=== PATIENT | male | born 1950 | race Caucasian/White ===

== ENCOUNTER 2021-12-07 09:36 | Emergency (ER) | payer MEDICARE, OTHER ==
[~2021-12-07] VITALS: Ht 188 cm; Wt 104.3 kg
--- NOTE | 2021-12-07 09:50 | PCM.EKG ---
[facility] Test Date: 2021-12-07 Test Time: 09:43:20 Pat Name: WOOD CEDENO Department: Patient ID: [id number] Room: Gender: M Veterinary Technologist: ROSALIE : 1950 Requested By: JUAN TILLMAN Order Number: [id number] Reading MD: Chintan Villasenor Measurements Intervals [place] Rate: 83 P: 27 OR: 157 QRS: 14 QRSD: 100 T: 33 QT: 381 QTc: 448 Interpretive Statements Sinus rhythm No previous ECG available for comparison Electronically Signed On 12-07-2021 23:01:12 PLATFORM MATERIAL HANDLER MANAGER by Chintan Villasenor Please click the below link to view image of tracing.
[2021-12-07 09:52] VITALS: BP 120/63
--- NOTE | 2021-12-07 09:58 | NUR ---
ARRIVAL PATIENT ARRIVED TO ED4 VIA GURNEY BY [facility], C/O SHORTNESS OF BREATH AND CHEST PAIN WITH EXERTION, RECENTLY HAS COVID BUT ISOLATION IS OVER, EMS INITIATED A 18G TO THE RIGHT AC, GAVE A TOTAL OF MORPHINE 8MG,ZOFRAN 4MG IV AND ASPIRIN 162 PO ANTISQUEAK WORKER, BROUGHT TO THE ED FOR EVAL, AIRWAYS CONTROL SPECIALIST APPLIED AND VITAL SIGNS OBTAINED. DOCTOR LAYNE NOTIFIED OF PATIENT'S ARRIVAL.
[2021-12-07 10:01] LABS: BASOPHIL % 0.2 % (0.0-0.2); EOSINOPHIL # 0.2 10^3/uL (0.0-0.2); EOSINOPHIL % 2.1 % (0.0-5.0); LYMPHOCYTES # 1.31 10^3/uL1 (1.0-4.8); LYMPHOCYTES % 15.4 % (24.0-44.0); MEAN CORP HGB 25.9 pg (26-34); MONOCYTES # 1.2 10^3/uL (0.3-0.8); MONOCYTES % 14.2 % (5.0-12.0); NEUTROPHIL # 5.8 10^3/uL (1.8-7.7); NEUTROPHILS % 67.6 % (41.0-85.0); PLATELET COUNT 466 10^3/uL (150-400)
[2021-12-07] MEDS ORDERED: TAMS-14 PO (10:13)
[2021-12-07] MEDS ORDERED: ALLO100T PO (10:13)
[2021-12-07] MEDS ORDERED: METF500T17 PO (10:13)
--- NOTE | 2021-12-07 10:13 | DIREP ---
PROCEDURE:CHEST 1 VIEW COMPARISON:None. INDICATIONS:Chest pain FINDINGS: LUNGS/PLEURA:Bilateral peripheral infiltrates, left greater than right. No effusion identified. No pneumothorax VASCULATURE:Normal. Unremarkable pulmonary vasculature. CARDIAC:Normal. No cardiac silhouette abnormality or cardiomegaly. MEDIASTINUM:Normal. No visible mass or adenopathy. BONES:Neurostimulator device. Reverse arthroplasty right shoulder. Degenerative changes left. Degenerative changes thoracic spine OTHER:Negative. CONCLUSION:Bilateral peripheral infiltrates, question clinical concern for COVID-19 pneumonia. Differential includes other atypical infections, as well as other processes. No effusion or pneumothorax identified. Dictated by: Mannie Post MD on 12/07/2021 at 10:10 AM
[2021-12-07 10:25] LABS: CARBON DIOXIDE 23.8 mmol/L (20.0-32)
--- NOTE | 2021-12-07 10:28 | ER.PDOC ---
General Chief Complaint: General Complaint Stated Complaint: SOB/CP Time seen by MD: 10:24 Source: patient Exam Limitations: no limitations History of Present Illness Initial Comments Chest pain and shortness of breath since last night. Pain was moderate and by the time EMS was called and on arrival, they gave patient a nitro glycerin tablet, aspirin and 8mg of morphine. Pain is presently easing up. No nausea or vomiting. Severity/Quality: moderate Radiation: no radiation Nitro Today/Relief: 0.4 mg x 1, Provided By EMS Aspirin Today: 81 mg x 4, Provided By EMS Associated Symptoms: shortness of breath Allergies: Coded Allergies: Sulfa (Sulfonamide Antibiotics) (Verified Allergy, Unknown, 12/07/21) Home Meds Reported Medications Metformin Hcl (METFORMIN HCL) 500 Mg Tablet, 1 TAB PO BID, #180 TAB 3 Refills 12/07/21 Tamsulosin Hcl (FLOMAX) 0.4 Mg Cap.er.24h, 1 CAP PO DAILY, #30 CAP 11 Refills 12/07/21 Allopurinol (ALLOPURINOL) 100 Mg Tablet, 1 TAB PO DAILY, #90 TAB 3 Refills 12/07/21 Past Medical History Medical History: diabetes, other Surgical History: back, hip, knee, neck, shoulder Family History Significant Family History: no pertinent family hx Social History Smoking: non-smoker Alcohol Use: none Drug Use: none Constitutional: no symptoms reported EENTM: no symptoms reported Respiratory: see HPI Cardiovascular: see HPI Gastrointestinal: no symptoms reported All Other Systems: Reviewed and Negative Physical Exam General Appearance: No Apparent Distress, WD/WN HEENT: PERRL/EOMI, Normal ENT Inspection, TMs Normal, Pharynx Normal Neck: Non-Tender, Full Range of Motion, Supple, Normal Inspection Respiratory: chest non-tender, normal breath sounds, no respiratory distress, no accessory muscle use, rhonchi Cardiovascular: Normal Peripheral Pulses, Regular Rate, Rhythm, No Edema, No Gallop, No JVD, No Murmur Gastrointestinal: Normal Bowel Sounds, No Organomegaly, No Pulsatile Mass, Non Tender, Soft Extremities: Normal Range of Motion, Non-Tender, Normal Inspection, No Pedal Edema, No Calf Tenderness, Normal Capillary Refill Neurologic/Psychiatric: staff veterinarian II-XII NML as Tested, No Motor/Sensory Deficits, Alert, Normal Mood/Affect, Oriented x 3 Skin: Normal Color, Warm/Dry Lymphatic: No Adenopathy Results/Orders Results/Orders Orders - JUAN TILLMAN MD Cbc With Auto Diff (12/07/21 09:47) Comprehensive Metabolic Panel (12/07/21 09:47) Creatine Kinase (12/07/21 09:47) Creatine Kinase Mb (12/07/21 09:47) Probnp B-Type Dramatic Agent (12/07/21 09:47) PT (12/07/21 09:47) Partial Thromboplastin Time. (12/07/21 09:47) D-Dimer (12/07/21 09:47) Xr Chest 1v (12/07/21 09:47) Ekg-Routine (12/07/21 09:47) Troponin I High Sensitivity (12/07/21 09:47) Covid19 Antigen Mely Roxanna (12/07/21 09:47) Vital Signs Date Time Temp Pulse Resp B/P (MAP) Pulse Ox O2 Delivery O2 Flow Rate FiO2 12/07/21 09:52 98.3 86 24 120/63 (82) 92 Room Air 12/07/21 09:52 98.3 86 24 92 12/07/21 09:52 98.3 86 24 Laboratory Tests Test 12/07/21 09:54 White Blood Count 8.5 10^3/uL (4.5-11.0) Red Blood Count 4.09 10^6/uL (4.50-5.90) L Hemoglobin 10.6 g/dL (13.9-16.3) L Hematocrit 35.4 % (37.0-53.0) L Mean Corpuscular Volume 86.6 fL (78-100) Mean Corpuscular Hemoglobin 25.9 pg (26-34) L Mean Corpuscular Hemoglobin Concent 29.9 g/dL (33-36.5) L Red Cell Distribution Width 15.0 % (11.5-14.5) H Platelet Count 466 10^3/uL (150-400) H Mean Platelet Volume 9.9 fL (7.8-11.0) Neutrophils (%) (Auto) 67.6 % (41.0-85.0) Lymphocytes (%) (Auto) 15.4 % (24.0-44.0) L Monocytes (%) (Auto) 14.2 % (5.0-12.0) H Neutrophils # (Auto) 5.8 10^3/uL (1.8-7.7) Lymphocytes # (Auto) 1.31 10^3/uL1 (1.0-4.8) Monocytes # (Auto) 1.2 10^3/uL (0.3-0.8) H Absolute Immature Granulocyte (auto 0.04 10^3 u/L (0-2) Absolute Eosinophils (auto) 0.2 10^3/uL (0.0-0.2) Immature Granulocytes % 0.50 % (0.00-0.50) Eosinophils % 2.1 % (0.0-5.0) Basophils % 0.2 % (0.0-0.2) Basophils # 0.0 10^3/uL (0.0-0.1) Progress Progress CTA CHEST: Positive for significant pulmonary embolism. RV/LV ratio 0.9. Suggesting right ventricular strain. In the presence of acute massive or submassive PE, consider ultrasound-facilitated low-dose fibrinolysis by interventional radiologist. 2. Significant extensive bilateral lung disease characteristic of viral infection such as Covid 19. 3. Mediastinal and hilar lymphadenopathy. 4. Suspicious mass in the stomach near the cardia that probably represents malignancy such is gastrointestinal stromal tumor. RECOMMEND evaluation with endoscopy. Patient transferred to [place] because he needs the services of gastroentero logist, oncologist and workcell operator. He reported passing black stools and Hemoccult is positive. At this time I am not able to start patient on an anticoagulant because of GI bleed. I will defer management to the workcell operator in [place]. EKG/XRAY/CT/US EKG: NSR EKG Comments: HR 83, normal P axis ER DEPART Departure Time of Disposition: 13:18 Disposition: 02 SHORT TERM HOSPITAL Impression: Primary Impression: Pulmonary embolism Additional Impressions: Mass of stomach GI bleed Post covid-19 condition, unspecified Condition: Critical Referrals: PCP,UNKNOWN (PCP) PRIMARY CARE PROVIDER Comments Transfer to [facility] ED for Dr. Sands Duration or Time Spent with Pa: 60 min Critical Care Note Total Time (mins): 60 Problem Qualifiers Primary Impression: Pulmonary embolism Pulmonary embolism type: unspecified Chronicity: acute Acute cor pulmonale presence: with acute cor pulmonale Qualified Codes: I26.09 - Other pulmonary embolism with acute cor pulmonale Additional Impressions: GI bleed GI bleed type/associated pathology: unspecified gastrointestinal hemorrhage type Qualified Codes: K92.2 - Gastrointestinal hemorrhage, unspecified JUAN TILLMAN MD Dec 07, 2021 10:28
[2021-12-07 10:49] VITALS: BP 92/48
--- NOTE | 2021-12-07 10:53 | NUR ---
CRITICAL LAB D-DIMER 6.29, DOCTOR LAYNE NOTIFIED
[2021-12-07] MEDS ORDERED: NS 1000ML 1,000 ML IV STA (11:13)
[2021-12-07] MEDS ORDERED: NS 1000ML 1,000 ML ONE (11:24)
[2021-12-07 12:18] VITALS: BP 99/60
--- NOTE | 2021-12-07 12:43 | DIREP ---
PROCEDURE:CT PULMONARY ANGIOGRAM TECHNIQUE:Following the intravenous administration of contrast material, axial cuts were obtained through the chest. Multiplanar / 3-D reconstructions are provided. Satisfactory pulmonary arterial contrast opacification was achieved. The images were viewed at lung and soft tissue settings. COMPARISON:None. INDICATIONS:chest pain FINDINGS: PULMONARY ARTERIES:Moderate amount of clot burden with small emboli seen extending from the right lower lobe pulmonary artery extending into the subsegmental branches as well as involving the subsegments of the right upper lobe. There is thrombus extending from the main left pulmonary artery and entering the left upper lobe and portions of the subsegments of the left lower lobe pulmonary arterial system. LUNGS:There is a significant amount of ground-glass as well as consolidative and patchy opacities bilaterally with extensive prominent ground-glass opacities that are characteristic of viral infection such as Covid 19. PLEURA:Normal. CARDIAC:Atherosclerotic coronary artery calcifications are noted. RV/LV ratio = 1.1 coronary artery calcifications are noted. THORACIC AORTA:No evidence of aneurysm or dissection MEDIASTINUM:Numerous mediastinal and hilar adenopathy noted for example the left tracheobronchial angle lymph node measures 1.5 cm in short access. The right hilar lymph node measures 2.2 cm in short axis. The subcarinal lymph node measures 1.7 cm in short axis. BONES:Note is made of significant bridging enthesophyte with findings that may represent underlying diffuse idiopathic skeletal hyperostosis versus ankylosing spondylitis. Note is made of a spinal stimulator. THYROID:Normal. OTHER:There is an irregular mass seen within the stomach that appears to extend beyond the borders of the stomach and measures 5.5 x 5.2 x 3.9 cm. Extensive calcifications seen throughout the liver and spleen compatible with calcified old granulomatous disease. CONCLUSION: 1. Positive for significant pulmonary embolism. RV/LV ratio 0.9. Suggesting right ventricular strain. In the presence of acute massive or submassive PE, consider ultrasound-facilitated low-dose fibrinolysis by interventional radiologist. 2. Significant extensive bilateral lung disease characteristic of viral infection such as Covid 19. 3. Mediastinal and hilar lymphadenopathy. 4. Suspicious mass in the stomach near the cardia that probably represents malignancy such is gastrointestinal stromal tumor. RECOMMEND evaluation with endoscopy. 5. Additional findings described above. 6. This report was called by telephone at 12:37 pm on December 07, 2021 to Hubert Briscoe Mba . Dictated by: Isacc Almanza MD on 12/07/2021 at 12:28 PM
--- NOTE | 2021-12-07 12:58 | NUR ---
[facility] DOCTOR LAYNE ON THE PHONE WITH [facility] AT THIS TIME DISCUSSING TRANSFER.
--- NOTE | 2021-12-07 13:09 | NUR ---
DISPATCH DISPATCH NOTIFIED OF PATIENT TRANSFER.
[2021-12-07 13:10] VITALS: BP 140/64
[2021-12-07] MEDS ORDERED: PROTONIX IV IV STA (13:10)
[2021-12-07] MEDS ORDERED: PROTONIX IV IV ONE (13:11)
--- NOTE | 2021-12-07 13:22 | NUR ---
REPORT REPORT CALLED TO MAEVE ROSAS AT [facility].
== END 2021-12-07 13:50 | disposition short-term general hospital (02) ==
LOC: ER 09:36 → EDBD 09:36 → ER 13:50
DX: K92.2 Gastrointestinal hemorrhage, unspecified (principal); K31.9 Disease of stomach and duodenum, unspecified; U09.9 Post COVID-19 condition, unspecified; I26.99 Other pulmonary embolism without acute cor pulmonale; E11.9 Type 2 diabetes mellitus without complications; I95.9 Hypotension, unspecified; E86.0 Dehydration; Z79.84 Long term (current) use of oral hypoglycemic drugs; Z88.2 Allergy status to sulfonamides; Z20.822 Contact with and (suspected) exposure to COVID-19
CPT/HCPCS: 36415; 71045; 71275; 80053; 82272; 82550; 82553; 83605; 83880; 84145; 84484; 85025; 85379; 85610; 85730; 87040 ×2; 87426; 93005; 96361; 96374; 99291; C9113; J7030; Q9965

== ENCOUNTER → 2022-04-07 | Outpatient (CLI) | payer MEDICARE, OTHER ==
[~2022-04-07] MED LIST: ALLO100T PO; METF500T17 PO; TAMS-14 PO
--- NOTE | 2022-04-07 16:42 | DIREP ---
PROCEDURE:CT CHEST ABDOMEN PELVIS W/CONTRAST COMPARISON:[facility], CT, CTA CHEST, 12/07/2021, 11:43 AM. INDICATIONS:GASTROINTESTINALSTROMAL TUMOR TECHNIQUE:Axial images were obtained through the chest, abdomen and pelvis during the IV administration of nonionic contrast. No oral contrast was administered. Sagittal and coronal reconstructions were performed from source images. FINDINGS: LUNGS:Normal. No visible pulmonary disease. PLEURA:Normal. No mass or effusion. CARDIAC:Normal. No enlargement, pericardial thickening, or significant calcification. MEDIASTINUM/DARRYL:Normal. No mass or adenopathy. CHEST WALL:Normal. No mass or axillary adenopathy. LIVER:Small granulomatous calcifications. 4 mm diameter hypo attenuating lesion in the right lobe of the liver most likely represents a cyst but is too small for definite characterization. BILIARY:Normal. No visible dilatation or calcification. PANCREAS:Normal. No lesion, fluid collection, ductal dilatation, or atrophy. SPLEEN:Small granulomatous calcifications; otherwise normal. ADRENALS:Normal. No mass or enlargement. URINARY TRACT:Bilateral renal cysts. Kidneys are otherwise normal. AORTA/VASCULAR:Normal. No aneurysm. RETROPERITONEUM:Normal. No mass or adenopathy. BOWEL/MESENTERY:Interval surgical excision of mass in the cardia of the stomach since the previous study dated December 07 2021. No residual or recurrent mass ABDOMINAL WALL:Normal. No mass or hernia. PELVIC ORGANS:Normal. No visible mass. Pelvic organs appropriate for patient age. BONES:Severe degenerative and postoperative changes in the thoracolumbar spine. Left hip arthroplasty. Right shoulder arthroplasty. OTHER:Dorsal column stimulator. CONCLUSION:1. Interval surgical excision of mass in the cardia of the stomach since December 07 2021. No residual or recurrent mass is identified. 2. Small cystic appearing lesions in the kidneys and liver. 3. Granulomatous calcifications in the liver and spleen. 4. Extensive degenerative and postoperative changes in the spine, shoulders and hips as described above. 5. CT scan of the abdomen and pelvis is otherwise normal. Dictated by: Rafy Goel M.D. on 04/07/2022 at 04:13 PM
== END | disposition home or self-care (01) ==
LOC: RAD 14:07
DX: K75.3 Granulomatous hepatitis, not elsewhere classified (principal); D73.89 Other diseases of spleen; C49.A0 Gastrointestinal stromal tumor, unspecified site; K90.89 Other intestinal malabsorption; M47.815 Spondylosis without myelopathy or radiculopathy, thoracolumbar region
CPT/HCPCS: 36415; 71260; 74177; 82565; Q9965

== ENCOUNTER 2022-06-19 15:27 | Emergency (ER) | payer MEDICARE, OTHER ==
[~2022-06-19] VITALS: Ht 188 cm; Wt 113.4 kg
--- NOTE | 2022-06-19 15:37 | NUR ---
ARRIVAL PT ARRIVED AMBULATORY TO ED 4 WITH C/O HAVING A HEADACHE FOR 2 WEEKS. PT IS ON CHEMOPILLS AND HAS STOMACH AND PROSTATE CANCER. VITALS TAKEN AND DR NOTIFIED.
[2022-06-19] MEDS ORDERED: STADOL IV STA (15:50)
[2022-06-19] MEDS ORDERED: ZOFRAN IV STA (15:50)
--- NOTE | 2022-06-19 15:52 | NUR ---
BEDSIDE GLUCOSE 132, EDP NOTIFIED.
[2022-06-19] MEDS ORDERED: NS 1000ML 1,000 ML IV ONE (16:00)
[2022-06-19 16:02] VITALS: BP 137/82
[2022-06-19 16:08] LABS: BASOPHIL % 0.3 % (0.0-0.2); EOSINOPHIL # 0.4 10^3/uL (0.0-0.2); LYMPHOCYTES # 1.79 10^3/uL1 (1.0-4.8); LYMPHOCYTES % 26.4 % (24.0-44.0); MONOCYTES # 0.7 10^3/uL (0.3-0.8); NEUTROPHIL # 3.9 10^3/uL (1.8-7.7); NEUTROPHILS % 57.2 % (41.0-85.0); PLATELET COUNT 258 10^3/uL (150-400); RED CELL DISTRIBUTION WIDTH 14.2 % (11.5-14.5)
[2022-06-19] MEDS ORDERED: ZOFRAN ONE (16:14)
[2022-06-19] MEDS ORDERED: NS 1000ML 1,000 ML ONE (16:14)
[2022-06-19] MEDS ORDERED: STADOL ONE (16:14)
[2022-06-19 16:34] LABS: CARBON DIOXIDE 23.8 mmol/L (20.0-32)
--- NOTE | 2022-06-19 16:55 | ER.PDOC ---
General Chief Complaint: Headache Stated Complaint: HEADACHE Time seen by MD: 16:00 Source: patient, family Exam Limitations: no limitations History of Present Illness Timing/Duration: 1 week Severity/Quality: moderate Associated Symptoms: sensitivity to light Modifying Factors: improves with rest Prior symptoms/Treatment: Similar symptoms previous Allergies: Coded Allergies: Sulfa (Sulfonamide Antibiotics) (Verified Allergy, Unknown, 12/07/21) Home Meds Reported Medications Metformin Hcl (METFORMIN HCL) 500 Mg Tablet, 1 TAB PO BID, #180 TAB 3 Refills 12/07/21 Tamsulosin Hcl (FLOMAX) 0.4 Mg Cap.er.24h, 1 CAP PO DAILY, #30 CAP 11 Refills 12/07/21 Allopurinol (ALLOPURINOL) 100 Mg Tablet, 1 TAB PO DAILY, #90 TAB 3 Refills 12/07/21 Past Medical History Medical History: diabetes Surgical History: back, hip, knee, neck, shoulder Social History Alcohol Use: none Drug Use: none Reviewed Nursing Reviewed: Vital Signs, Abn. Noted Review of Systems Constitutional: weakness Ears, Nose, Mouth, Throat: no symptoms reported Respiratory: no symptoms reported Cardiovascular: no symptoms reported Gastrointestinal: no symptoms reported Genitourinary: no symptoms reported Musculoskeletal: no symptoms reported Skin: no symptoms reported Psychiatric/Neurological: headache All Other Systems: Reviewed and Negative Physical Exam General Appearance: No Apparent Distress, WD/WN Head/Eyes: eyes nml inspection, no facial swelling, no nystagmus, PERRL ENT: nml ENT inspection, pharynx nml Neck: nml inspection, Supple Cardiovascular: Normal Peripheral Pulses, Regular Rate, Rhythm, No Edema, No Gallop, No JVD, No Murmur Respiratory: chest non-tender, lungs clear, normal breath sounds, no respiratory distress, no accessory muscle use Gastrointestinal: Normal Bowel Sounds, No Organomegaly, No Pulsatile Mass, Non Tender, Soft Back: Normal Inspection, No CVA Tenderness, No Vertebral Tenderness Extremities: Normal Range of Motion, Non-Tender, Normal Inspection, No Pedal Edema, No Calf Tenderness, Normal Capillary Refill Motor/Sensory: No Motor Deficit, No Sensory Deficit, No Pronator Drift, Negative Babinski's Sign Skin: Warm/Dry, Normal Color Results/Orders Results/Orders Orders - BREANNA MCCAULEY MD Ct Head Wo Contrast (06/19/22 15:50) Cbc With Auto Diff (06/19/22 15:50) Comprehensive Metabolic Panel (06/19/22 15:50) Creatine Kinase (06/19/22 15:50) Creatine Kinase Mb (06/19/22 15:50) PT (06/19/22 15:50) Partial Thromboplastin Time. (06/19/22 15:50) 0.9 % Sodium Chloride (Ns 1000ml) (06/19/22 16:00) Butorphanol Tartrate (Stadol) (06/19/22 15:50) Ondansetron Hcl/Pf (Zofran) (06/19/22 15:50) Saline Lock (06/19/22 16:22) Vital Signs Date Time Temp Pulse Resp B/P (MAP) Pulse Ox O2 Delivery O2 Flow Rate FiO2 06/19/22 16:02 97.9 71 18 97 06/19/22 16:02 97.9 71 18 06/19/22 16:02 97.9 71 18 137/82 (100) 97 Room Air* 0 21 Administered Medications Medications (Trade) Dose Ordered Sig/Faustino Route PRN Reason Start Time Stop Time Status Last Admin Dose Admin Butorphanol Tartrate (Stadol) 1 mg STAT STAT IV 06/19/22 15:50 06/19/22 15:59 DC 06/19/22 16:18 1 MG Ondansetron HCl (Zofran) 4 mg STAT STAT IV 06/19/22 15:50 06/19/22 15:59 DC 06/19/22 16:18 4 MG Sodium Chloride 1,000 ml @ 0 mls/hr Q0M ONCE IV 06/19/22 16:00 06/19/22 16:01 DC 06/19/22 16:18 1,200 MLS/HR Laboratory Tests Test 06/19/22 15:50 06/19/22 16:00 POC Glucose 132 (70 - 110) H White Blood Count 6.8 10^3/uL (4.5-11.0) Red Blood Count 4.83 10^6/uL (4.50-5.90) Hemoglobin 14.5 g/dL (13.9-16.3) Hematocrit 43.9 % (37.0-53.0) Mean Corpuscular Volume 90.9 fL (78-100) Mean Corpuscular Hemoglobin 30.0 pg (26-34) Mean Corpuscular Hemoglobin Concent 33.0 g/dL (33-36.5) Red Cell Distribution Width 14.2 % (11.5-14.5) Platelet Count 258 10^3/uL (150-400) Mean Platelet Volume 10.5 fL (7.8-11.0) Neutrophils (%) (Auto) 57.2 % (41.0-85.0) Lymphocytes (%) (Auto) 26.4 % (24.0-44.0) Monocytes (%) (Auto) 10.0 % (5.0-12.0) Neutrophils # (Auto) 3.9 10^3/uL (1.8-7.7) Lymphocytes # (Auto) 1.79 10^3/uL1 (1.0-4.8) Monocytes # (Auto) 0.7 10^3/uL (0.3-0.8) Absolute Immature Granulocyte (auto 0.01 10^3 u/L (0-2) Absolute Eosinophils (auto) 0.4 10^3/uL (0.0-0.2) H Immature Granulocytes % 0.10 % (0.00-0.50) Eosinophils % 6.0 % (0.0-5.0) H Basophils % 0.3 % (0.0-0.2) H Basophils # 0.0 10^3/uL (0.0-0.1) Prothrombin Time 11.7 SEC (9.1-11.5) H Prothrombin Time INR (Non-Therap) 1.2 Activated Partial Thromboplast Time 30.3 SEC (22.5-33.1) Sodium Level 140 mmol/L (132-145) Potassium Level 3.9 mmol/L (3.6-5.2) Chloride Level 106.0 mmol/L (96-109) Carbon Dioxide Level 23.8 mmol/L (20.0-32) Anion Gap 14.1 Blood Urea Nitrogen 11 mg/dL (7-18) Creatinine 0.84 mg/dL (0.59-1.40) Estimated GFR () 108.7 (>/=60) Est GFR (CKD-EPI)(Non-Afr Cook Islander) 89.8 (>/=60) BUN/Creatinine Ratio 13.0 Glucose Level 124 mg/dL (70-110) H Calcium Level 9.1 mg/dL (8.4-10.5) Total Bilirubin 0.5 mg/dL (0.2-1.0) Aspartate Amino Transferase (AST) 20 U/L (0-35) Alanine Aminotransferase (ALT) 33 U/L (12-78) Alkaline Phosphatase 69 U/L (50-136) Total Creatine Kinase 97 U/L (39-308) Creatine Kinase MB 2.4 ng/mL (0.5-3.6) Total Protein 7.2 g/dL (6.4-8.2) Albumin 3.6 g/dL (3.4-5.0) Globulin 3.6 Albumin/Globulin Ratio 1.000 ER DEPART Departure Time of Disposition: 17:33 Disposition: 01 HOME / SELF CARE / HOMELESS Impression: Primary Impression: Headache Condition: Improved Referrals: PCP,UNKNOWN (PCP) PRIMARY CARE PROVIDER Duration or Time Spent with Pa: 12m Return to Work/School Can a patient return to work?: No Can a patient return to school: No BREANNA MCCAULEY MD Jun 19, 2022 16:55
--- NOTE | 2022-06-19 17:04 | DIREP ---
PROCEDURE:CT HEAD OR BRAIN W/O CONTRAST COMPARISON:None. INDICATIONS:h/a TECHNIQUE:CT images were created without intravenous contrast. FINDINGS: VENTRICLES:The ventricles are normal in size and configuration. CEREBRUM:Normal cerebral morphology with appropriate nunez white matter differentiation. CEREBELLUM:Negative. BRAINSTEM:Negative. BASAL CISTERNS:Negative. HEMORRHAGE (Vol L*W*H*.52):No MASS LESION:No ACUTE INFARCT:No SKULL:Normal. SINUSES:Normal. OTHER:None CONCLUSION:Normal examination. Dictated by: Jose A Santizo DO on 06/19/2022 at 05:01 PM
[2022-06-19 17:59] VITALS: BP 156/65
== END 2022-06-19 17:59 | disposition home or self-care (01) ==
LOC: ER 15:27
DX: R51.9 Headache, unspecified (principal); E11.9 Type 2 diabetes mellitus without complications; R11.2 Nausea with vomiting, unspecified; Z88.2 Allergy status to sulfonamides
CPT/HCPCS: 99284; 96374; 70450; 96361; 96375; 80053; 85025; 82948; 36415; 82553; 82550; 85610; 85730; J7030; J0595; J2405